=== PATIENT | female | born 1955 | race Hispanic/Latino ===

== ENCOUNTER → 2021-10-24 | Outpatient (CLI) | payer MEDICARE | LOC: MAMMO 09:58 | PROVIDERS: ATTEND Obstetrics & Gynecology | DX: N63.20 Unspecified lump in the left breast, unspecified quadrant (principal) | CPT/HCPCS: 77066 ==

== ENCOUNTER → 2021-12-27 | Outpatient (CLI) | payer MEDICARE | LOC: US 12:47 | PROVIDERS: ATTEND Obstetrics & Gynecology | DX: R10.2 Pelvic and perineal pain (principal) | CPT/HCPCS: 76830 ==

== ENCOUNTER → 2022-05-22 | Outpatient (CLI) | payer MEDICARE | LOC: MAMMO 09:28 | PROVIDERS: ATTEND Family Medicine | DX: R92.8 Other abnormal and inconclusive findings on diagnostic imaging of breast (principal) ==

== ENCOUNTER → 2022-12-11 | Day surgery (SDC) | payer MEDICARE ==
[2022-12-08 10:34] LABS: BASOPHILS % 0.4 % (0.0-1.0); EOSINOPHILS # (AUTO) 0.2 (0.0-0.4); EOSINOPHILS % 2.6 % (0.0-6.0); HEMATOCRIT 39.9 % (34.2-44.1); HEMOGLOBIN 12.3 g/dL (12.0-16.0); LYMPHOCYTES # (AUTO) 1.8 (1.0-3.2); LYMPHOCYTES % 25.6 % (18.0-39.1); MEAN CORPUSCULAR HEMOGLOBIN 25.6 pg (28-32); MEAN CORPUSCULAR HGB CONC 30.8 g/dL (31-35); MEAN CORPUSCULAR VOLUME 83.1 fL (81-99); MONOCYTES # (AUTO) 0.4 (0.2-0.8); MONOCYTES % 6.2 % (4.4-11.3); NEUTROPHILS # (AUTO) 4.5 (2.1-6.9); NEUTROPHILS % 64.6 % (38.7-80.0); PLATELET COUNT 261 x10e3/uL (140-360); RED CELL DISTRIBUTION WIDTH 14.2 % (11.7-14.4)
[2022-12-08 11:03] LABS: ANION GAP 11.2 mmol/L (8-16); CREATININE, SERUM 0.74 mg/dL (0.57-1.11); POTASSIUM 4.2 mmol/L (3.5-5.1)
[~2022-12-11] MED LIST: ACETAMINOPHEN 1000 MG/100 ML 100 ML IV ONE; ACETAMINOPHEN 1000 MG/100 ML IV ONE; ALBUMIN 25% 12.5GM 50ML 0 ML IV ONE; ASPIRIN EC81 MG PO; ATORVASTATIN CA20 MG PO; BALANCED SALT SOLN (OPTH) 15 ML BTL IO ONE; BUPIVACAINE HC 0.75% PF 10ML VIAL INJ ONE; CYCLOPENTOLATE HCL 2% OPTH SOLN 2 ML BTL OP ONE; EPINEPHRINE HCL 1:1000 1ML 1 MG/ML AMP ONE; LACTATED RINGER'S 1,000 ML ONE; LEVOTHYROXINE112 MCG PO; LIDOCAINE 2% /EPINEPHRINE 20 ML SDV INJ ONE; LIDOCAINE HCL 2% LOCAL INJ 5 ML SDV VIAL INJ ONE; LIDOCAINE HCL-PF 4% 40 MG/1 ML 5ML AMP ONE; METOPROLOL SUCC50 MG PO; MOXIFLOXACIN HCL(OPTH) 3 ML BTL ONE; MULTI-VITAMIN1 EACH PO; OMEPRAZOLE40 MG PO; PHENYLEPHRINE HCL 2 ML DROPS ONE; POVIDONE IODINE 0.05% 0.05 % ML PO ONE; POVIDONE IODINE 5% (OPTH) 30 ML BTL ONE; PROPOFOL IV EMULSION 10 MG/ML 20 ML VIAL ONE; TOBRAMYCIN/DEXAMETHASONE(OPTH) 3.5 GM TUBE ONE; VENLAFAXINE HCL75 MG PO; VITAMIN D3 COM1 EACH PO; VITAMIN E400 UNI1 PO
[2022-12-11 11:35] VITALS: TEMP 98.1
[2022-12-11 11:55] VITALS: BP 126/64; PULSE 62; RESP 18; O2SAT 97
== END | disposition home or self-care (01) ==
LOC: OR 07:59
PROVIDERS: ATTEND Ophthalmology
DX: H25.12 Age-related nuclear cataract, left eye (principal); G47.33 Obstructive sleep apnea (adult) (pediatric); I10 Essential (primary) hypertension; E78.5 Hyperlipidemia, unspecified; E03.9 Hypothyroidism, unspecified; K21.9 Gastro-esophageal reflux disease without esophagitis; F41.9 Anxiety disorder, unspecified; F32.A Depression, unspecified; Z88.2 Allergy status to sulfonamides; Z01.810 Encounter for preprocedural cardiovascular examination; Z01.812 Encounter for preprocedural laboratory examination; Z79.82 Long term (current) use of aspirin; Z79.899 Other long term (current) drug therapy
CPT/HCPCS: 36415; 80048; 85025; 93005; J0171; J2001; V2632

== ENCOUNTER → 2023-05-22 | Outpatient (REF) | payer MEDICARE ==
[~2023-05-22] MED LIST changes: -ACETAMINOPHEN 1000 MG/100 ML 100 ML IV ONE; -ACETAMINOPHEN 1000 MG/100 ML IV ONE; -ALBUMIN 25% 12.5GM 50ML 0 ML IV ONE; -BALANCED SALT SOLN (OPTH) 15 ML BTL IO ONE; -BUPIVACAINE HC 0.75% PF 10ML VIAL INJ ONE; -CYCLOPENTOLATE HCL 2% OPTH SOLN 2 ML BTL OP ONE; -EPINEPHRINE HCL 1:1000 1ML 1 MG/ML AMP ONE; -LACTATED RINGER'S 1,000 ML ONE; -LIDOCAINE 2% /EPINEPHRINE 20 ML SDV INJ ONE; -LIDOCAINE HCL 2% LOCAL INJ 5 ML SDV VIAL INJ ONE; -LIDOCAINE HCL-PF 4% 40 MG/1 ML 5ML AMP ONE; -MOXIFLOXACIN HCL(OPTH) 3 ML BTL ONE; -PHENYLEPHRINE HCL 2 ML DROPS ONE; -POVIDONE IODINE 0.05% 0.05 % ML PO ONE; -POVIDONE IODINE 5% (OPTH) 30 ML BTL ONE; -PROPOFOL IV EMULSION 10 MG/ML 20 ML VIAL ONE; -TOBRAMYCIN/DEXAMETHASONE(OPTH) 3.5 GM TUBE ONE
== END ==
LOC: US 12:24
PROVIDERS: ATTEND Family Medicine
DX: E05.90 Thyrotoxicosis, unspecified without thyrotoxic crisis or storm (principal)
CPT/HCPCS: 76536

== ENCOUNTER → 2023-05-27 | Outpatient (REF) | payer MEDICARE | LOC: RAD 11:51 | PROVIDERS: ATTEND Family Medicine | DX: R05.9 Cough, unspecified (principal) | CPT/HCPCS: 71046 ==

== ENCOUNTER → 2023-08-25 | Outpatient (REF) | payer MEDICARE | LOC: DX 12:22 | PROVIDERS: ATTEND Student in an Organized Health Care Education/Training Program | DX: M85.88 Other specified disorders of bone density and structure, other site (principal); Z78.0 Asymptomatic menopausal state | CPT/HCPCS: 77080 ==